=== PATIENT | male | born 1960 | race Caucasian/White ===

== ENCOUNTER → 2019-04-26 | Outpatient (CLI) | payer BC ==
--- NOTE | 2019-04-26 17:32 | Diagnostic Imaging Report ---
Indication: Lower abdominal pain. Time of exam 4:39 PM No free air is identified. Bowel gas pattern is nonobstructive. No pathologic calcifications are seen. Moderate stool in the colon is noted. Impression: No acute abnormality is detected. Dictated by: Dictated on workstation # [id number]
== END ==
LOC: RAD FS 16:40
PROVIDERS: ATTEND Nurse Practitioner Family
DX: R10.30 Lower abdominal pain, unspecified (principal)
CPT/HCPCS: 74019

== ENCOUNTER 2019-11-01 13:53 | Emergency (ER) | payer BC, OTHER ==
[~2019-11-01] VITALS: Ht 172 cm; Wt 89.9 kg
[2019-11-01] MEDS ORDERED: LIDOCAINE 1% INJ 20 ML 20 ML VIAL ONE (14:00)
[2019-11-01] MEDS ORDERED: ATOR40TA70 (14:08)
[2019-11-01] MEDS ORDERED: SERT100T8 (14:08)
[2019-11-01] MEDS ORDERED: DIVA500T15 (14:08)
--- NOTE | 2019-11-01 14:35 | ED Upper Extremity ---
General Chief Complaint: Laceration Stated Complaint: RT THUMB LAC Nursing Triage Note: Cut base of left thumb working on a car in his garage approximately 30 minutes prior to arrival. States is up to date on tetanus vaccine. Nursing Sepsis Screen: No Definite Risk History of Present Illness Date Seen by Provider: Nov 01, 2019 Time Seen by Provider: 14:00 Initial Comments Laceration to the thumb web of the right hand were normal with the car and speech is sheet-metal cut it fairly clean wound good range of motion good neurologic function prior to numbing it up tetanus is current Allergies and Home Medications Allergies Coded Allergies: morphine (Verified Allergy, Unknown, hives, 11/01/19) Patient Home Medication List Home Medication List Reviewed: Yes Review of Systems Constitutional: No chills, No fever Musculoskeletal: joint pain; No joint swelling Skin: other (laceration about 1 inch long base of the right thumb) Psychiatric/Neurological: Denies Numbness, Denies Paresthesia, Denies Weakness Past Iolbgim-Absxir-Bbmzkv Hx Past Med/Social Hx: Reviewed Nursing Past Med/Soc Hx Patient Social History Alcohol Use: Denies Use Recreational Drug Use: No Smoking Status: Current Everyday Smoker Type Used: Cigarettes 2nd Hand Smoke Exposure: Yes Recent Foreign Travel: No Contact w/Someone Who Travel: No Recent Infectious Disease Expo: No Recent Hopitalizations: No Physical Abuse: No Sexual Abuse: No Mistreated: No Fear: No Seasonal Allergies Seasonal Allergies: No Past Medical History Surgeries: Yes (fingers) Respiratory: No Cardiac: Yes Heart Attack Neurological: No Genitourinary: No Gastrointestinal: No Musculoskeletal: No Endocrine: No HEENT: No Cancer: No Psychosocial: No Integumentary: No Blood Disorders: No Adverse Reaction/Blood Tranf: No Physical Exam Vital Signs Vital Signs - First Documented 11/01/19 14:06 Temp 36.9 Pulse 95 Resp 18 B/P (MAP) 153/92 (112) Pulse Ox 96 Capillary Refill : Less Than 3 Seconds Height, Weight, BMI Height: '" Weight: lbs. oz. kg; 30.00 BMI Method: General Appearance: WD/WN, no apparent distress Wrist: Yes normal inspection Hand: laceration (when his laceration base of the right thumb) Neurologic/Tendon: normal sensation, normal motor functions, normal tendon functions; No motor deficit, No sensory deficit Neurologic/Psychiatric: alert, oriented x 3 Skin: normal color Procedures/Interventions Wound Location: Upper Extremities (base of the right thumb) Other Wound Location Base of the right thumb Wound Length (cm): 2.5 Wound's Depth, Shape: linear Wound Explored: clean Anesthesia: 1% Lidocaine Suture: Ethlion Suture Size: 4-0 Number of Sutures: 4 Progress Sterile prep and drape and percent local Xylocaine the area was thoroughly irrigated and cleansed deep structures were noted to be intact closed with simple interrupted sutures Progress/Results/Core Measures Results/Orders My Orders Orders - ROSELYN ENRIQUEZ JR, MD Lidocaine 1% Inj 20 Ml (Xylocaine 1% Inj (11/01/19 14:00) Vital Signs/I&O 11/01/19 14:06 Temp 36.9 Pulse 95 Resp 18 B/P (MAP) 153/92 (112) Pulse Ox 96 Blood Pressure Mean: 112 Departure Impression Primary Impression: Laceration of right hand Qualified Codes: S61.411A - Laceration without foreign body of right hand, initial encounter Disposition: 01 HOME, SELF-CARE Condition: Stable Departure-Patient Inst. Referrals: KAEL CASTANEDA MD (PCP/Family) Primary Care Physician Patient Instructions: Laceration Repair With Stitches (DC) ROSELYN ENRIQUEZ JR, MD Nov 01, 2019 14:34
[2019-11-01 14:36] VITALS: BP 153/92
== END 2019-11-01 14:46 | disposition home or self-care (01) ==
LOC: EDUNIT# 13:53 → ER FS 13:54
DX: S61.011A Laceration without foreign body of right thumb without damage to nail, initial encounter (principal); I25.2 Old myocardial infarction; F17.210 Nicotine dependence, cigarettes, uncomplicated; Z88.5 Allergy status to narcotic agent; W26.8XXA Contact with other sharp object(s), not elsewhere classified, initial encounter

== ENCOUNTER → 2020-02-24 | Outpatient (CLI) | payer OTHER ==
[~2020-02-24] MED LIST: ATOR40TA70; CATHETER FLUSH 10 ML SYR IV PRN; DIVA500T15; HOLD METFORMIN - RECEIVED CONTRAST 20 ML VIAL IV SCH; IOHEXOL 350 MG/ML 100 ML (OMNIPAQUE 350) VIAL IV ONE; NS 100 ML (IVPB) BAG IV ONE; SERT100T8
[2020-02-24 09:30] LABS: ALBUMIN 4.4 GM/DL (3.2-4.5); BILIRUBIN,TOTAL 0.7 MG/DL (0.1-1.0); CALCIUM 9.3 MG/DL (8.5-10.1); CREATININE SERUM 1.37 MG/DL (0.60-1.30); POTASSIUM 4.4 MMOL/L (3.6-5.0)
--- NOTE | 2020-02-24 10:44 | Diagnostic Imaging Report ---
PROCEDURE: CT abdomen and pelvis with contrast. TECHNIQUE: Multiple contiguous axial images were obtained through the abdomen and pelvis after administration of intravenous contrast. Auto Exposure Controls were utilized during the CT exam to meet ALARA standards for radiation dose reduction. INDICATION: Intermittent lower abdominal pain for 2 months. No prior studies are available for comparison. Lung bases demonstrate some minimal scarring or atelectasis in the lingula. The liver is enlarged measuring 20.6 cm. There is diffuse low-density throughout the liver consistent with hepatic steatosis. No discrete liver mass is detected. The gallbladder is unremarkable. No biliary duct dilatation is seen. The pancreas and spleen are unremarkable. No adrenal mass is detected. Kidneys are unremarkable. Aorta shows moderate plaque. Aorta is borderline in size measuring 3.0 cm in the infrarenal location. No central retroperitoneal or mesenteric lymphadenopathy is seen. Bowel loops are normal caliber. There is no obstruction. There is significant diverticulosis of the sigmoid colon as well as the descending colon. There is marked long segment wall thickening of the sigmoid colon with surrounding inflammatory changes consistent with acute diverticulitis. No abscess formation is identified. No definite perforation is detected. Bladder and prostate are unremarkable. No pelvic lymphadenopathy is seen. Bony structures are unremarkable. IMPRESSION: 1. Hepatomegaly and hepatic steatosis. 2. Borderline minimal dilatation of the infrarenal abdominal aorta. 3. Findings consistent with acute sigmoid diverticulitis. There is no evidence of abscess formation or bowel obstruction. Dictated by: Dictated on workstation # [id number]
== END ==
LOC: RAD FS 09:20
PROVIDERS: ATTEND Family Medicine
DX: I10 Essential (primary) hypertension (principal); R10.84 Generalized abdominal pain; K76.0 Fatty (change of) liver, not elsewhere classified; R16.0 Hepatomegaly, not elsewhere classified; K57.30 Diverticulosis of large intestine without perforation or abscess without bleeding
CPT/HCPCS: 36415; 74177; 80053

== ENCOUNTER 2020-08-29 06:55 | Emergency (ER) | payer OTHER ==
[~2020-08-29] VITALS: Ht 172.7 cm; Wt 86.6 kg
[~2020-08-29 06:55] MED LIST changes: -CATHETER FLUSH 10 ML SYR IV PRN; -HOLD METFORMIN - RECEIVED CONTRAST 20 ML VIAL IV SCH; -IOHEXOL 350 MG/ML 100 ML (OMNIPAQUE 350) VIAL IV ONE; -NS 100 ML (IVPB) BAG IV ONE
[2020-08-29 06:57] VITALS: BP 186/95
--- NOTE | 2020-08-29 07:07 | ED Back Pain ---
General Chief Complaint: Back Problems Stated Complaint: BACK AND LEG PAIN Nursing Triage Note: Patient presents to the ED with c/o of back pain and right leg numbness. Patient reports that he injured his back Thursday; was seen by his PCP yesterday given a steriod injection and pain medication and a muscle relaxer. Patient states that he was sleeping and went to turn over heard something pop, had shooting pain go down his leg and now his right leg is numb. Nursing Sepsis Screen: No Definite Risk Source of Information: Patient Exam Limitations: No Limitations History of Present Illness Date Seen by Provider: Aug 29, 2020 Time Seen by Provider: 07:00 Initial Comments 60-year-old male presents with low back pain secondary to an injury about 5 days ago while at work. 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 Saw his primary care physician yesterday and was given a shot of steroid and 2 prescriptions (a muscle relaxer and Ultram). States he rolled over in bed around 2 a.m. causing more pain and now having some radiation of pain into his right thigh. Denies loss of bowel or bladder control. Denies weakness of his lower extremity. Allergies and Home Medications Allergies Coded Allergies: morphine (Verified Allergy, Unknown, hives, 11/01/19) Patient Home Medication List Home Medication List Reviewed: Yes Review of Systems Constitutional: No dizziness, No fever, No malaise, No weakness Respiratory: No cough, No short of breath Cardiovascular: No chest pain, No edema, No palpitations, No syncope Gastrointestinal: No abdominal pain, No nausea, No vomiting Genitourinary: No dysuria, No frequency, No hematuria, No incontinence Musculoskeletal: see HPI, back pain; No joint pain; muscle pain Psychiatric/Neurological: Numbness (R thigh); Denies Paresthesia, Denies Pre- Existing Deficit, Denies Tingling, Denies Tremors, Denies Weakness Past Ysemkks-Dhsygo-Racxte Hx Past Med/Social Hx: Reviewed Nursing Past Med/Soc Hx Patient Social History Alcohol Use: Denies Use Recreational Drug Use: No Smoking Status: Current Everyday Smoker Type Used: Cigarettes 2nd Hand Smoke Exposure: Yes Recent Foreign Travel: No Contact w/Someone Who Travel: No Recent Infectious Disease Expo: No Recent Hopitalizations: No Physical Abuse: No Sexual Abuse: No Mistreated: No Fear: No Seasonal Allergies Seasonal Allergies: No Past Medical History Surgeries: Yes (fingers) Respiratory: No Cardiac: Yes Heart Attack, High Cholesterol, Hypertension Neurological: No Genitourinary: No Gastrointestinal: No Musculoskeletal: No Endocrine: No HEENT: No Cancer: No Psychosocial: Yes Depression Integumentary: No Blood Disorders: No Adverse Reaction/Blood Tranf: No Physical Exam Vital Signs Vital Signs - First Documented 08/29/20 06:57 Temp 35.7 Pulse 82 Resp 18 B/P (MAP) 186/95 (125) Pulse Ox 98 O2 Delivery Room Air Capillary Refill : Less Than 3 Seconds Height, Weight, BMI Height: '" Weight: lbs. oz. kg; 29.00 BMI Method: General Appearance: No Apparent Distress, WD/WN Cardiovascular: Regular Rate, Rhythm, No Edema, No JVD, Normal Peripheral Pulses Respiratory: Chest Non Tender, Lungs Clear, Normal Breath Sounds, No Accessory Muscle Use, No Respiratory Distress Gastrointestinal: Normal Bowel Sounds, Non Tender, Soft Back: Normal Inspection, No CVA Tenderness, Decreased Range of Motion, Muscle Spasm (b/l lower lumbar paraspinal ms); No Vertebral Tenderness Neurologic/Psychiatric: Alert, Oriented x3, No Motor/Sensory Deficits, Normal Mood/Affect; No Motor Weakness, No Sensory Deficit Skin: Normal Color, Warm/Dry Procedures/Interventions Suture Size: 4-0 Progress/Results/Core Measures Results/Orders My Orders Orders - PANKAJ CHONG DO Ketorolac Injection (Toradol Injection) (08/29/20 07:15) Lumbar Spine 2 Or 3 View (08/29/20 07:05) Medications Given in ED Current Medications Medications Dose Ordered Sig/Yvon Route Start Time Stop Time Status Last Admin Dose Admin Ketorolac Tromethamine 60 mg ONCE ONCE IM 08/29/20 07:15 08/29/20 07:16 DC 08/29/20 07:20 60 MG Vital Signs/I&O 08/29/20 06:57 Temp 35.7 Pulse 82 Resp 18 B/P (MAP) 186/95 (125) Pulse Ox 98 O2 Delivery Room Air Blood Pressure Mean: 125 Departure Impression Primary Impression: Lumbar sprain Qualified Codes: S33.5XXA - Sprain of ligaments of lumbar spine, initial encounter Disposition: 01 HOME, SELF-CARE Condition: Stable Departure-Patient Inst. Decision time for Depature: 07:32 Referrals: KAEL KIRK MD (PCP/Family) Primary Care Physician Patient Instructions: Lumbar Muscle Strain (DC) Add. Discharge Instructions: Follow up with Dr Kirk in 1 to 2 days for re-evaluation All discharge instructions reviewed with patient and/or family. Voiced understanding. PANKAJ CHONG DO Aug 29, 2020 07:07
[2020-08-29] MEDS ORDERED: KETOROLAC 60 MG/2 ML VIAL IM ONE (07:15)
--- NOTE | 2020-08-29 07:53 | Diagnostic Imaging Report ---
INDICATION: Pain within back extending into right leg. FINDINGS: 3 views. Lumbosacral spine shows good alignment. Body heights and disc spaces are well-maintained. Facets show good alignment with mild hypertrophic change at L4-L5 and L5-S1. There are no acute fractures. SI joints are symmetrical with mild sclerosis. IMPRESSION: Findings of mild degenerative disc and facet disease in the lower lumbosacral spine. Dictated by: Dictated on workstation # [id number]
[2020-08-29] MEDS ORDERED: GABA300C PO (12:57)
== END 2020-08-29 07:40 | disposition home or self-care (01) ==
LOC: EDUNIT# 06:55 → ER FS 06:56
DX: S33.5XXA Sprain of ligaments of lumbar spine, initial encounter (principal); I25.2 Old myocardial infarction; F17.210 Nicotine dependence, cigarettes, uncomplicated; Z88.5 Allergy status to narcotic agent; X50.9XXA Other and unspecified overexertion or strenuous movements or postures, initial encounter
CPT/HCPCS: 72100

== ENCOUNTER 2020-08-29 12:34 | Emergency (ER) | payer OTHER ==
[~2020-08-29] VITALS: Ht 172.7 cm; Wt 86.6 kg
[2020-08-29] MEDS ORDERED: GABA300C PO (12:57)
--- NOTE | 2020-08-29 12:59 | ED Back Pain ---
General Chief Complaint: Back Problems Stated Complaint: LEG PAIN Source of Information: Patient Exam Limitations: No Limitations History of Present Illness Date Seen by Provider: Aug 29, 2020 Time Seen by Provider: 12:45 Initial Comments 60-year-old male presents via EMS from home after being seen here by myself earlier this morning for lumbar strain. Patient states that the pain got worse. Denies any loss of bowel or bladder control. Continued pain of his low back with radiation to his right thigh. Location: Lumbar Spine, Paraspinous Muscles Allergies and Home Medications Allergies Coded Allergies: morphine (Verified Allergy, Unknown, hives, 11/01/19) Home Medications Gabapentin 300 Mg Capsule, 300 MG PO BID Prescribed by: PANKAJ CHONG on 08/29/20 1257 Patient Home Medication List Home Medication List Reviewed: Yes Review of Systems Constitutional: No dizziness, No fever, No malaise, No weakness Respiratory: No cough Cardiovascular: No chest pain, No edema, No palpitations, No syncope Gastrointestinal: No abdominal pain, No constipation, No diarrhea, No nausea, No vomiting Musculoskeletal: back pain; No joint pain, No joint swelling; muscle pain; No muscle weakness Skin: No change in color, No rash Psychiatric/Neurological: Numbness (R thigh); Denies Paresthesia, Denies Pre- Existing Deficit, Denies Weakness Past Fztbuzn-Ycczyx-Khpyym Hx Past Med/Social Hx: Reviewed Nursing Past Med/Soc Hx Patient Social History Alcohol Use: Denies Use Recreational Drug Use: No Smoking Status: Current Everyday Smoker Type Used: Cigarettes 2nd Hand Smoke Exposure: Yes Recent Hopitalizations: No Physical Abuse: No Sexual Abuse: No Mistreated: No Fear: No Seasonal Allergies Seasonal Allergies: No Past Medical History Surgeries: Yes (fingers) Respiratory: No Cardiac: Yes Heart Attack, High Cholesterol, Hypertension Neurological: No Genitourinary: No Gastrointestinal: No Musculoskeletal: No Endocrine: No HEENT: No Cancer: No Psychosocial: Yes Depression Integumentary: No Blood Disorders: No Adverse Reaction/Blood Tranf: No Physical Exam Vital Signs Vital Signs - First Documented 08/29/20 12:36 Temp 36.3 Pulse 84 Resp 18 B/P (MAP) 160/90 (113) Pulse Ox 97 O2 Delivery Room Air Capillary Refill : Height, Weight, BMI Height: '" Weight: lbs. oz. kg; 29.00 BMI Method: General Appearance: No Apparent Distress, WD/WN Cardiovascular: Regular Rate, Rhythm, No Edema Respiratory: Chest Non Tender, Lungs Clear Gastrointestinal: Normal Bowel Sounds, No Organomegaly, Non Tender, Soft Back: No CVA Tenderness, No Vertebral Tenderness, Decreased Range of Motion, Muscle Spasm (b/l lower lumbar paraspinal ms); No Vertebral Tenderness Extremity: Normal Inspection, Non Tender, No Calf Tenderness, No Pedal Edema Neurologic/Psychiatric: Alert, Oriented x3; No Motor Weakness; Other (dysesthesia R ant upper thigh) Skin: Normal Color, Warm/Dry Procedures/Interventions Suture Size: 4-0 Progress/Results/Core Measures Results/Orders My Orders Orders - PANKAJ CHONG DO Ct Lumbar Spine Wo (08/29/20 12:42) Diazepam Tablet (Valium Tablet) (08/29/20 13:00) Medications Given in ED Current Medications Medications Dose Ordered Sig/Yvon Route Start Time Stop Time Status Last Admin Dose Admin Diazepam 5 mg ONCE ONCE PO 08/29/20 13:00 08/29/20 13:01 DC 08/29/20 13:13 5 MG Vital Signs/I&O 08/29/20 12:36 Temp 36.3 Pulse 84 Resp 18 B/P (MAP) 160/90 (113) Pulse Ox 97 O2 Delivery Room Air Progress Progress Note : Progress Note Discussed CT results w pt, as well as planned start of Neurontin today and f/u w Dr Kirk in 1-2 days for re-evaluation Diagnostic Imaging Diagonstic Imaging: CT Comments IMPRESSION: 1. Degenerative changes of the spine with up to mild central canal and moderate bilateral neuroforaminal stenosis at L2-L3 secondary to disc bulge. 2. No acute osseous abnormality of the lumbar spine. Dictated on workstation # [id number] Dict: 08/29/20 1314 Trans: 08/29/20 1325 [id number] Interpreted by: ILIANA NORTON DO Electronically signed by: Departure Impression Primary Impression: Lumbar sprain Qualified Codes: S33.5XXD - Sprain of ligaments of lumbar spine, subsequent encounter Additional Impression: Right lumbar radiculitis Disposition: HOME, SELF-CARE Condition: Stable Departure-Patient Inst. Decision time for Depature: 13:40 Referrals: KAEL KIRK MD (PCP/Family) Primary Care Physician Patient Instructions: Low Back Pain (DC), Radiculopathy (DC) Add. Discharge Instructions: Follow up with Dr Kirk in 2 days for re-evaluation All discharge instructions reviewed with patient and/or family. Voiced un derstanding. Scripts Gabapentin (Neurontin) 300 Mg Capsule 300 MG PO BID, #60 CAP Prov: PANKAJ CHONG DO 08/29/20 PANKAJ CHONG DO Aug 29, 2020 12:59
[2020-08-29] MEDS ORDERED: DIAZEPAM 5 MG (VALIUM) TABLET PO ONE (13:00)
--- NOTE | 2020-08-29 13:25 | Diagnostic Imaging Report ---
EXAMINATION: CT lumbar spine without contrast. TECHNIQUE: Multiple contiguous axial images were obtained through the lumbar spine without the use of intravenous contrast. Sagittal and coronal reformations were then performed. All CT scans use one or more of the following dose optimizing techniques: automated exposure control, MA and/or KvP adjustment based on a patient size and exam type, or iterative reconstruction. HISTORY: Low back pain and radiculopathy. COMPARISON: CT abdomen/pelvis 02/24/2020. FINDINGS: The alignment of the lumbar spine is normal. Vertebral body heights are normal and no fracture is seen. Facet joints are normal. Disc heights are normal. 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 There is mild central canal stenosis at L1-L2, L2-L3, and L3-L4 secondary to small symmetric disc bulges. There is moderate bilateral neuroforaminal stenosis at L2-L3. Multilevel mild neuroforaminal stenosis. Limited views of the abdomen and pelvis show no soft tissue abnormality. Calcifications of the aorta with ectasia up to 3.3 cm. Scattered colonic diverticulosis. IMPRESSION: 1. Degenerative changes of the spine with up to mild central canal and moderate bilateral neuroforaminal stenosis at L2-L3 secondary to disc bulge. 2. No acute osseous abnormality of the lumbar spine. Dictated by: Dictated on workstation # [id number]
[2020-08-29 13:55] VITALS: BP 162/90
== END 2020-08-29 13:52 | disposition home or self-care (01) ==
LOC: EDUNIT# 12:34 → ER FS 12:36
DX: S33.5XXA Sprain of ligaments of lumbar spine, initial encounter (principal); I25.2 Old myocardial infarction; F17.210 Nicotine dependence, cigarettes, uncomplicated; Z88.5 Allergy status to narcotic agent; X58.XXXA Exposure to other specified factors, initial encounter
CPT/HCPCS: 72131

== ENCOUNTER 2021-09-02 12:36 | Emergency (ER) | payer OTHER ==
[~2021-09-02] VITALS: Ht 172.7 cm; Wt 84.8 kg
[~2021-09-02 12:36] MED LIST changes: +GABA300C PO; +SERT-414; -SERT100T8
--- OUTSIDE RECORDS SUMMARY | 2021-09-02 12:40 | XMS REPORT | Clinical Summary ---
Author Author [facility] Organization [facility] Address Unknown Phone Unavailable Care Team Providers Care Broadloom Weaver Name Role Phone Reagan, Gama FUNEZ PCP Ethan Mercedes MD Unavailable Unavailable Source Comments Some departments are not documenting in the electronic medical record. If you d o not see the information that you expected, contact Release of Information in [facility] [employer] Information Management department at [phone] for further assistan ce in locating additional records.[facility] Allergies Comments Active Allergy Reactions Severity Noted Date Doxycycline RASH Medium 08/18/2011 Also "I got real hot" Morphine RASH, High 04/17/2009 ITCHING, SEE COMMENTS Medications End Date Status Medication Sig Dispensed Refills Start Date Active sertraline (ZOLOFT) 50 mg Take 150 mg 0 tablet by mouth daily. Active aspirin EC (ASPIR-81) 81 Take 81 mg by 0 05/05 /201 mg tablet mouth daily. 7 Active atorvastatin (LIPITOR) 40 Take 40 mg by 0 05/3 1/201 mg tablet mouth at 8 bedtime daily. Active ammux-ulipn-6-dha-epa-lip Take 1 0 ids [id number] mg cap capsule by mouth daily. Active lisinopriL (ZESTRIL) 20 Take 20 mg by 0 03/25/ 201 mg tablet mouth daily. 8 Active topiramate (TOPAMAX) 25 Take 25mg at 120 tablet 5 0 05/18/202 mg tablet PM for 1 wk 0 then 25mg AM and PM for 1wk then 50mg at PM and 25mg at AM for 1wk then 50mg AM and PM Active Problems Problem Noted Date Bilateral carpal tunnel syndrome 06/22/2020 Overview: Formatting of this note might be differ ent from the original. Moderate based on EMG on 06/20/20 Medication overuse headache 05/18/2020 Dizziness 05/18/2020 Bilateral hand numbness 05/18/2020 Surgical History Surgery Date Site/Laterality Comments HAND SURGERY Bilateral reattached fingers on right and left hand COLONOSCOPY 12/25/2019 - 01/24/2020 Medical History Medical History Date Comments Hyperlipidemia Hypertension Psoriasis COPD (chronic obstructive pulmonary disease) (HCC) Depressive disorder IBS (irritable bowel syndrome) Generalized headaches Heart abnormality Vision decreased Family History Relation Name Status Comments Brother Alive Daughter Alive Daughter Alive Father Other Mother Sister Alive Sister Alive Sister Alive Social History Date Tobacco Use Types Packs/Day Years Used Never Assessed Sex Assigned at Date Recorded Not on file Last Filed Vital Signs Reading Time Taken Comments Vital Sign 128/66 06/20/2020 10:59 AM CDT Blood Pressure 72 06/20/2020 10:59 AM CDT Pulse 37.4 C (99.3 F) 04/17/2009 10:00 AM CDT Temperature - - Respiratory Rate 98% 06/20/2020 10:59 AM CDT Oxygen Saturation - - Inhaled Oxygen Concentration 86.2 kg (190 lb) 06/20/2020 10:59 AM CDT Weight 172.7 cm (5' 8") 06/20/2020 10:59 AM CDT Height 28.89 06/20/2020 10:59 AM CDT Body Mass Index Plan of Treatment Health Maintenance Due Date Last Done Comments HIV SCREENING 1977 DTAP/TDAP VACCINES (1 - 1980 Tdap) HEPATITIS C SCREENING 1980 PHYSICAL (COMPREHENSIVE) 1980 EXAM COLORECTAL CANCER 2012 SCREENING SHINGLES RECOMBINANT 2012 VACCINE (1 of 2) INFLUENZA VACCINE 05/26/2021 09/04/2017 Results Not on filefrom Last 3 Months Insurance Type Payer Benefit Subscriber ID Effective Phone Address Plan / Dates Group KILEY CAO [id number] MEENU [id number] (Home) MEENU ORNELAS [id number] Advance Directives Patient Bread Wrapper Explanation Type Date Recorded Advance Directive/DPOA
--- NOTE | 2021-09-02 12:45 | ED Abdominal Pain ---
General Chief Complaint: Abdominal/GI Problems Stated Complaint: DIZZINESS; NAUSEA; ELEV BP History of Present Illness Date Seen by Provider: Sep 02, 2021 Time Seen by Provider: 12:45 Initial Comments 61-year-old male presents with some generalized malaise, some clamminess of nausea with some dizziness but just not feeling well. Reports that started about an hour ago when he sat down to take a break from work. He denies any fever, chills, chest pain, shortness of breath, vomiting, cough or any other [facility] complaints. Allergies and Home Medications Allergies Coded Allergies: morphine (Verified Allergy, Unknown, hives, 11/01/19) Patient Home Medication List Home Medication List Reviewed: Yes Atorvastatin Calcium (Atorvastatin Calcium) 40 Mg Tablet, (Reported) Entered as Reported by: LENORA NGUYEN on 11/01/19 1408 Divalproex Sodium (Divalproex Sodium ER) 500 Mg Tab.er.24h, (Reported) Entered as Reported by: LENORA NGUYEN on 11/01/19 1408 Gabapentin (Neurontin) 300 Mg Capsule, 300 MG PO BID Prescribed by: PANKAJ CHONG on 08/29/20 1257 Sertraline HCl (Sertraline HCl) 100 Mg Tablet, (Reported) Entered as Reported by: LENORA NGUYEN on 11/01/19 1408 Review of Systems Review of Systems Constitutional: malaise Respiratory: Denies Cough, Denies Shortness of Air Cardiovascular: Denies Chest Pain; Lightheadedness Gastrointestinal: Denies Abdominal Pain; Nausea; Denies Vomiting Musculoskeletal: no symptoms reported Skin: see HPI Psychiatric/Neurological: No Symptoms Reported Endocrine: No Symptoms Reported Past Vwoavge-Mvlvgu-Jdccaw Hx Seasonal Allergies Seasonal Allergies: No Past Medical History Surgeries: Yes (fingers) Respiratory: No Cardiac: Yes Heart Attack, High Cholesterol, Hypertension Neurological: No Genitourinary: No Gastrointestinal: No Musculoskeletal: No Endocrine: No HEENT: No Cancer: No Psychosocial: Yes Depression Integumentary: No Blood Disorders: No Adverse Reaction/Blood Tranf: No Physical Exam Vital Signs Vital Signs - First Documented 09/02/21 12:39 Temp 35.1 Pulse 69 Resp 16 B/P (MAP) 164/85 (111) O2 Delivery Room Air Capillary Refill : Height/Weight/BMI Height: '" Weight: lbs. oz. 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 as tested, alert, normal mood/affect, oriented x 3 Skin: normal color, warm/dry Focused Exam Lactate Level 09/02/21 13:08: Lactic Acid Level 0.70 Lactic Acid Level Laboratory Tests Test 09/02/21 13:08 Lactic Acid Level 0.70 MMOL/L (0.50-2.00) Procedures/Interventions Suture Size: 4-0 Progress/Results/Core Measures Results/Orders Lab Results Laboratory Tests Test 09/02/21 12:47 09/02/21 12:56 09/02/21 13:08 09/02/21 14:00 Range/Units White Blood Count 9.3 4.3-11.0 10^3/uL Red Blood Count 4.95 4.30-5.52 10^6/uL Hemoglobin 14.5 13.3-17.7 g/dL Hematocrit 42 40-54 % Mean Corpuscular Volume 84 80-99 fL Mean Corpuscular Hemoglobin 29 25-34 pg Mean Corpuscular Hemoglobin Concent 35 32-36 g/dL Red Cell Distribution Width 13.5 10.0-14.5 % Platelet Count 240 130-400 10^3/uL Mean Platelet Volume 8.9 L 9.0-12.2 fL Immature Granulocyte % (Auto) 0 % Neutrophils (%) (Auto) 56 42-75 % Lymphocytes (%) (Auto) 32 12-44 % Monocytes (%) (Auto) 6 0-12 % Eosinophils (%) (Auto) 5 0-10 % Basophils (%) (Auto) 1 0-10 % Neutrophils # (Auto) 5.2 1.8-7.8 X 10^3 Lymphocytes # (Auto) 3.0 1.0-4.0 X 10^3 Monocytes # (Auto) 0.6 0.0-1.0 X 10^3 Eosinophils # (Auto) 0.4 H 0.0-0.3 10^3/uL Basophils # (Auto) 0.1 0.0-0.1 10^3/uL Immature Granulocyte # (Auto) 0.0 0.0-0.1 10^3/uL Sodium Level 134 L 135-145 MMOL/L Potassium Level 3.9 3.6-5.0 MMOL/L Chloride Level 100 98-107 MMOL/L Carbon Dioxide Level 22 21-32 MMOL/L Anion Gap 12 5-14 MMOL/L Blood Urea Nitrogen 17 7-18 MG/DL Creatinine 1.26 0.60-1.30 MG/DL Estimat Glomerular Filtration Rate 59 BUN/Creatinine Ratio 13 Glucose Level 117 H 70-105 MG/DL Calcium Level 9.6 8.5-10.1 MG/DL Corrected Calcium 8.5-10.1 MG/DL Magnesium Level 2.0 1.6-2.4 MG/DL Total Bilirubin 0.6 0.1-1.0 MG/DL Aspartate Amino Transf (AST/SGOT) 23 5-34 U/L Alanine Aminotransferase (ALT/SGPT) 21 0-55 U/L Alkaline Phosphatase 68 40-136 U/L Troponin I < 0.30 <0.30 NG/ML C-Reactive Protein 0.35 <0.50 MG/DL Total Protein 7.8 6.4-8.2 GM/DL Albumin 4.8 H 3.2-4.5 GM/DL Glucometer 111 H 70-110 MG/DL Lactic Acid Level 0.70 0.50-2.00 MMOL/L Lipase 32 8-78 U/L Test 09/02/21 15:15 Range/Units Troponin I < 0.30 <0.30 NG/ML My Orders Orders - DIAZ,ELLY L DO Cbc With Automated Diff (09/02/21 12:49) Comprehensive Metabolic Panel (09/02/21 12:49) Lactic Acid Analyzer (09/02/21 12:49) Magnesium (09/02/21 12:49) Ua Culture If Indicated (09/02/21 12:49) Crp Fs (09/02/21 12:49) Troponin I Fs (09/02/21 12:49) Accucheck Stat ONCE (09/02/21 12:49) Ekg Tracing (09/02/21 12:49) Monitor-Rhythm Ecg Trace Only (09/02/21 12:49) Chest 1 View Ap/Pa Only (09/02/21 12:49) Aspirin Chewable Tablet (Baby Aspirin Ch (09/02/21 13:00) Ondansetron Injection (Zofran Injectio (09/02/21 13:00) Ns Iv 1000 Ml (Sodium Chloride 0.9%) (09/02/21 12:59) Meclizine Tablet (Antivert Tablet) (09/02/21 13:45) Ct Head Wo-R/O Stroke (09/02/21 13:46) Lipase (09/02/21 13:56) Troponin I Fs (09/02/21 14:47) Medications Given in ED Current Medications Medications Dose Ordered Sig/Yvon Route Start Time Stop Time Status Last Admin Dose Admin Aspirin 324 mg ONCE ONCE PO 09/02/21 13:00 09/02/21 13:01 DC 09/02/21 13:21 324 MG Meclizine HCl 25 mg ONCE ONCE PO 09/02/21 13:45 09/02/21 13:46 DC 09/02/21 14:28 25 MG Ondansetron HCl 4 mg ONCE ONCE IVP 09/02/21 13:00 09/02/21 13:01 DC 09/02/21 13:19 4 MG Vital Signs/I&O 09/02/21 12:39 Temp 35.1 Pulse 69 Resp 16 B/P (MAP) 164/85 (111) O2 Delivery Room Air Progress Progress Note : Progress Note Patient symptoms improved following meclizine and IV fluids. Patient with negative labs. He does have some mild fluid on his mastoid on the right on CT which is likely an incidental finding. I did discuss this with him. Patient should follow-up with his primary care provider for further evaluation if symptoms have not improved in the next 3 to 5 days patient can use [id number] meclizine. Patient was stable upon discharge Initial ECG Impression Date: Sep 02, 2021 Initial ECG Impression Time: 12:54 Initial ECG Rate: 66 Initial ECG Rhythm: Normal Sinus Initial ECG Impression: Nonspecific Changes Comment no acute changes or st elevation Diagnostic Imaging Diagonstic Imaging: Xray Plain Films/CT/US/NM/MRI: chest Comments Date of Exam:09/02/21 CHEST 1 VIEW AP/PA ONLY EXAMINATION: Chest 1 view HISTORY: dizziness COMPARISON: None available. FINDINGS: Heart size and pulmonary vasculature are normal. The lungs are clear without consolidation, pleural effusion, or pneumothorax. The osseous structures are intact. IMPRESSION: 1. No acute radiographic abnormality in the chest. Departure Impression Primary Impression: Vertigo Disposition: 01 HOME, SELF-CARE Condition: Stable Departure-Patient Inst. Referrals: SELF,KAEL FUNEZ (PCP/Family) Primary Care Physician Patient Instructions: Vertigo (a Type of Dizziness), Dizziness, Nonvertigo, (DC) Add. Discharge Instructions: [id number] meclizine/Antivert use as directed on package Follow-up with your primary care provider in 4 to 5 days if symptoms or not improved or if they continue to worsen All discharge instructions reviewed with patient and/or family. Voiced understanding. ELLY DIAZ DO Sep 02, 2021 12:45
[2021-09-02] MEDS ORDERED: NS IV 1000 ML 1,000 ML IV STA (12:59)
[2021-09-02] MEDS ORDERED: ASPIRIN 81 MG CHEW (CHILDREN'S ASA) PO ONE (13:00)
[2021-09-02] MEDS ORDERED: ONDANSETRON 4 MG/2 ML (SDV) Z0FRAN IVP ONE (13:00)
--- NOTE | 2021-09-02 13:06 | Diagnostic Imaging Report ---
EXAMINATION: Chest 1 view HISTORY: dizziness COMPARISON: None available. FINDINGS: Heart size and pulmonary vasculature are normal. The lungs are clear without consolidation, pleural effusion, or pneumothorax. The osseous structures are intact. IMPRESSION: 1. No acute radiographic abnormality in the chest. Dictated by: Dictated on workstation # [id number]
[2021-09-02 13:13] LABS: WHITE BLOOD COUNT 9.3 10^3/uL (4.3-11.0)
[2021-09-02 13:14] LABS: BASOPHILS % (AUTO) 1 % (0-10); EOSINOPHILS % (AUTO) 5 % (0-10); HEMATOCRIT 42 % (40-54); HEMOGLOBIN 14.5 g/dL (13.3-17.7); LYMPHOCYTES % (AUTO) 32 % (12-44); MEAN CORPUSCULAR HEMOGLOBIN 29 pg (25-34); MEAN CORPUSCULAR HGB CONC 35 g/dL (32-36); MEAN CORPUSCULAR VOLUME 84 fL (80-99); MEAN PLATELET VOLUME 8.9 fL (9.0-12.2); MONOCYTES % (AUTO) 6 % (0-12); NEUTROPHILS % (AUTO) 56 % (42-75); PLATELET COUNT 240 10^3/uL (130-400)
[2021-09-02 13:15] LABS: BASOPHILS # (AUTO) 0.1 10^3/uL (0.0-0.1); EOSINOPHILS # (AUTO) 0.4 10^3/uL (0.0-0.3); MONOCYTES # (AUTO) 0.6 X 10^3 (0.0-1.0); NEUTROPHILS # (AUTO) 5.2 X 10^3 (1.8-7.8)
[2021-09-02 13:29] LABS: ALANINE AMINOTRANSFERASE 21 U/L (0-55); ALKALINE PHOSPHATASE 68 U/L (40-136); BILIRUBIN,TOTAL 0.6 MG/DL (0.1-1.0); BUN/CREATININE RATIO 13; CALCIUM 9.6 MG/DL (8.5-10.1); CARBON DIOXIDE 22 MMOL/L (21-32); CHLORIDE 100 MMOL/L (98-107); CREATININE SERUM 1.26 MG/DL (0.60-1.30); GFR ESTIMATED 59; GLUCOSE 117 MG/DL (70-105); POTASSIUM 3.9 MMOL/L (3.6-5.0); SODIUM 134 MMOL/L (135-145); TOTAL PROTEIN 7.8 GM/DL (6.4-8.2)
[2021-09-02 13:30] LABS: ALBUMIN 4.8 GM/DL (3.2-4.5)
[2021-09-02] MEDS ORDERED: MECLIZINE 25 MG (ANTIVERT) TAB PO ONE (13:45)
--- NOTE | 2021-09-02 14:08 | Diagnostic Imaging Report ---
EXAMINATION: CT head without contrast. TECHNIQUE: Multiple contiguous axial images were obtained through the brain without the use of intravenous contrast. All CT scans use one or more of the following dose optimizing techniques: Automated exposure control, MA and/or KvP adjustment based on patient size and exam type or iterative reconstruction. HISTORY: Dizziness. Concern for acute ischemia. COMPARISON: None available. FINDINGS: No large acute territorial ischemia, mass, or hemorrhage. No midline shift or mass effect. The ventricles, cortical sulci, and basilar cisterns are patent and unremarkable. The orbits are normal. Paranasal sinuses are normal. Small amount of fluid is seen in the right mastoid air cells. No soft tissue abnormality is seen. No osseous lesions or fractures are seen. IMPRESSION: 1. No large acute territorial ischemia, mass, or hemorrhage. 2. Small right-sided mastoid effusion. Dictated by: Dictated on workstation # [id number]
[2021-09-02 16:08] VITALS: BP 141/80
== END 2021-09-02 16:08 | disposition home or self-care (01) ==
LOC: EDUNIT# 12:36 → ER FS 12:37
DX: R42 Dizziness and giddiness (principal); I25.2 Old myocardial infarction; I10 Essential (primary) hypertension; F32.9 Major depressive disorder, single episode, unspecified; E78.00 Pure hypercholesterolemia, unspecified; Z79.899 Other long term (current) drug therapy
CPT/HCPCS: 36415; 70450; 71045; 80053; 82947; 83605; 83690; 83735; 84484; 85025; 86141; 93005; 93041

== ENCOUNTER 2022-01-13 05:38 | Outpatient (CLI) | payer OTHER ==
[~2022-01-13] VITALS: Ht 172.7 cm; Wt 85.0 kg
[2022-01-13] MEDS ORDERED: ROSU40TA23 PO (10:48)
[2022-01-13] MEDS ORDERED: LISI20TA26 PO (10:48)
[2022-01-13] MEDS ORDERED: SERT150C PO (10:48)
[2022-01-13] MEDS ORDERED: OMEG1CAP24 PO (10:48)
== END 2022-01-13 11:11 | disposition home or self-care (01) ==
LOC: PREOP 05:38
PROVIDERS: ATTEND Surgery
DX: Z01.818 Encounter for other preprocedural examination (principal)

== ENCOUNTER 2022-01-20 08:49 | Day surgery (SDC) | payer OTHER ==
[~2022-01-20] VITALS: Ht 173 cm; Wt 85.0 kg
[~2022-01-20 08:49] MED LIST changes: +LISI20TA26 PO; +OMEG1CAP24 PO; +ROSU40TA23 PO; +SERT150C PO
[2022-01-20] MEDS ORDERED: LACTATED RINGERS 1,000 ML IV ONE (08:55)
[2022-01-20] MEDS ORDERED: LACTATED RINGERS 1,000 ML IV STA (08:59)
[2022-01-20 09:20] VITALS: BP 165/96
--- NOTE | 2022-01-20 09:25 | Progress Note-Pre Operative ---
Pre-Operative Progress Note H&P Reviewed The H&P was reviewed, patient examined and no changes noted. Time Seen by Provider: 09:23 Date H&P Reviewed: Jan 20, 2022 Time H&P Reviewed: 09:23 Pre-Operative Diagnosis: Screening Colonoscopy URBAN EMERY DO Jan 20, 2022 09:25
[2022-01-20] MEDS ORDERED: PROPOFOL INJECTION 50 ML IV ONE (10:28)
[2022-01-20] MEDS ORDERED: MIDAZOLAM 2 MG/2 ML (VERSED) VIAL ONE (10:28)
[2022-01-20 10:50] VITALS: BP 123/72
[2022-01-20 10:55] VITALS: BP 123/81
--- NOTE | 2022-01-20 10:58 | Progress Note-Post Operative ---
Post-Operative Progess Note Surgeon (s)/Surveyor (s) Surgeon URBAN EMERY DO Surveyor: CHRISTINA Shoemaker Pre-Operative Diagnosis Screening Colonoscopy Post-Operative Diagnosis Polyp Colitis Diverticula int hemorrhoids Procedure & Operative Findings Date of Procedure 01/20/22 Procedure Performed/Findings Colon with snare Colon with hot bx PROCEDURE NOTE: After informed consent was obtained, the patient was brought to the endoscopy suite, placed in bed in left lateral decubitus position. He was administered IV sedation by the SEXER who then monitored his vitals the entire time, heart rate, blood pressure and pulse ox and the scope was inserted, pushed all the way to about 140 cm and pushed into the cecum. On the way in, just past hepatic flexure in the ascending colon saw a polyp and removed it with snare polypectomy. Once in the Cecum took a picture of appendiceal orifice and then slowly withdrew the scope insufflating to look circumferentially at the levi starting in the cecum, up the ascending colon to the hepatic flexure, then down the transverse colon, splenic flexure, into the descending colon and down into the sigmoid. In the sigmoid saw some inflammation like colitis; elected to do a couple of hot biopsies in two different spots. Finally into the rectal vault and retroflexed the scope. Took picture of the internal hemorrhoids. The patient tolerated the procedure. He was recovered in endoscopy suite. Anesthesia Type IV sedation by SEXER Estimated Blood Loss Estimated blood loss (mL): scant Specimens/Packing Specimens Removed asc colon polyp simgoid colon bx URBAN EMERY DO Jan 20, 2022 10:58
--- NOTE | 2022-01-20 10:59 | Endoscopy Discharge Instruct ---
Endo Procedure/Findings Findings 1.: Polyp 2.: Colitis 3.: Diverticulosis 4.: Internal Hemorrhoids Discharge Instructions - Activity: You might feel a little sleepy until tomorrow. This is due to the medicine you received to relax you. Until tomorrow, you should: NOT drive a car, operate machinery or power tools. NOT drink any alcoholic beverages. NOT make any important decisions or sign importortant papers. Do not return to work until tomorrow, unless otherwise instructed. Resume previous activities tomorrow. Diet: Start by taking liquids. If you tolerate liquids, advance to solid food. 1.: Colonscopy in 5 years Notify Physician - If you experience excessive bleeding, unusual abdominal pain, fever, or chest pain, contact your doctor immediately. URBAN EMERY DO Jan 20, 2022 10:59
[2022-01-20 11:00] VITALS: BP 132/92
[2022-01-20 11:05] VITALS: BP 142/76
[2022-01-20 11:20] VITALS: BP 133/92
--- NOTE | 2022-01-20 14:25 | Anesthesia-General Post-Op ---
MAC Patient Condition Mental Status/LOC: Same as Preop Cardiovascular: Satisfactory Nausea/Vomiting: Absent Respiratory: Satisfactory Pain: Controlled Complications: Absent Post Op Complications Complications None Follow Up Care/Instructions Patient Instructions None needed. Anesthesiology Discharge Order Discharge Order Patient is doing well, no complaints, stable vital signs, no apparent adverse anesthesia problems. No complications reported per nursing. WALTER GAMEZ CRNA Jan 20, 2022 14:25
== END 2022-01-20 11:30 | disposition home or self-care (01) ==
LOC: ENDO 08:49
PROVIDERS: ATTEND Surgery
DX: D12.3 Benign neoplasm of transverse colon (principal); K52.9 Noninfective gastroenteritis and colitis, unspecified; K64.8 Other hemorrhoids; R10.32 Left lower quadrant pain; K57.30 Diverticulosis of large intestine without perforation or abscess without bleeding; R42 Dizziness and giddiness; F17.210 Nicotine dependence, cigarettes, uncomplicated; Z79.899 Other long term (current) drug therapy
CPT/HCPCS: 88305